=== PATIENT | female | born 1940 | race African-American/Black ===

== ENCOUNTER 2022-05-23 07:14 | Emergency (ER) | payer OTHER ==
[~2022-05-23] VITALS: Ht 167.6 cm; Wt 49.9 kg
[2022-05-23 09:13] LABS: BASOPHILS % 0.5 % (0.0-2.0); EOSINOPHILS % 0.3 % (0.0-5.0); HEMATOCRIT. 29.5 % (36.0-48.0); HEMOGLOBIN. 9.1 g/dL (12.0-16.0); LYMPHOCYTES % 15.4 % (20.0-50.0); MEAN CORPUSCULAR HEMOGLOBIN 28.7 pg (28.0-32.0); MEAN CORPUSCULAR VOLUME 92.5 fL (81.0-99.0); MEAN PLATELET VOLUME 8.1 fl (7.4-10.4); MONOCYTES % 3.8 % (2.0-8.0); PLATELET 216 x1000/uL (130-400); RED BLOOD CELL COUNT 3.19 mill/uL (4.2-5.4); RED CELL DISTRIBUTION WIDTH 21.2 % (11.6-14.6)
[2022-05-23 09:16] LABS: CHLORIDE 106 mEq/L (98-107)
[2022-05-23] MEDS ORDERED: MORPHINE SULFATE 4 MG/ML CPJ (NOT FOR IM USE) IV ONE (10:45)
[2022-05-23] MEDS ORDERED: IOHEXOL-350 100 ML BOTTLE ONE ×2 (10:48→13:17)
[2022-05-23 12:00] VITALS: BP 112/62
== END 2022-05-23 12:56 | disposition short-term general hospital (02) ==
LOC: EDSEX 07:36 → ER 07:36 → EDBD 07:36 → EDBEDREQ 09:02 → ER 12:56 → CANBEDREQ 14:16
DX: R07.89 Other chest pain (principal); R06.02 Shortness of breath; R11.0 Nausea; Z85.9 Personal history of malignant neoplasm, unspecified; Z88.0 Allergy status to penicillin; Z20.822 Contact with and (suspected) exposure to COVID-19
CPT/HCPCS: 36415; 71045; 71275; 80053; 84484; 85025; 87426; 93005; 96374; 99285; J2270; Q9967